=== PATIENT | female | born 1950 | race Two or more races ===

== ENCOUNTER 2016-12-21 08:04 | Day surgery (SDC) | payer OTHER ==
[~2016-12-21] VITALS: Ht 160 cm; Wt 96.9 kg
[2016-12-21] VITALS (8 sets, daily range): BP systolic 103–181; BP diastolic 50–74; PULSE 64–80; RESP 16–25; Ht 160 cm; Wt 96.9 kg
[2016-12-21] MEDS ORDERED: CEFAZOLIN SODIUM 2GM/D5W 50 X1 IVPB ONE (10:00)
[2016-12-21] MEDS ORDERED: SOD CHLORIDE 0.9% 1,000 ML IV SCH (10:00)
[2016-12-21] MEDS ORDERED: METO-407 PO (11:48)
[2016-12-21] MEDS ORDERED: LISI40TA9 PO (11:48)
[2016-12-21] MEDS ORDERED: HYDR-3672 PO (11:48)
[2016-12-21] MEDS ORDERED: FURO40TA4 PO (11:48)
[2016-12-21] MEDS ORDERED: SIMV-39 PO (11:48)
[2016-12-21] MEDS ORDERED: LANTUS SOLOSTAR (11:48)
[2016-12-21] MEDS ORDERED: NOVOLOG (11:48)
[2016-12-21] MEDS ORDERED: GABA300C PO (11:48)
[2016-12-21] MEDS ORDERED: HYDROCODONE/APAP (7.5/325) TAB PO PRN (12:00)
[2016-12-21] MEDS ORDERED: KETOROLAC 30 MG INJ ONE (14:38)
[2016-12-21] MEDS ORDERED: PROPOFOL 20 ML ONE (14:41)
[2016-12-21] MEDS ORDERED: LIDOCAINE 2% (SDV) 5 ML INJ ONE (14:41)
[2016-12-21] MEDS ORDERED: FENTAnyl 50 MCG/ML VIAL ONE (14:41)
[2016-12-21] MEDS ORDERED: PHENYLephrine (100 MCG/ML) 5ML SYG ONE ×2 (14:53→15:22)
[2016-12-21] MEDS ORDERED: CEFAZOLIN 1 GM INJ ONE (14:55)
[2016-12-21] MEDS ORDERED: DEXAMETHASONE 4 MG/ML 1 ML INJ ONE (15:01)
[2016-12-21] MEDS ORDERED: METOCLOPRAMIDE 10 MG INJ ONE (15:01)
[2016-12-21] MEDS ORDERED: ONDANSETRON 4 MG INJ ONE (15:01)
[2016-12-21] MEDS ORDERED: HYDROmorphONE (0.2 MG/ML) 10ML SYG IV PRN ×2 (16:00)
[2016-12-21] MEDS ORDERED: ONDANSETRON 4 MG INJ IV PRN (16:00)
[2016-12-21] MEDS ORDERED: MEPERIDINE 25 MG INJ IV PRN (16:00)
[2016-12-21] MEDS ORDERED: DIPHENHYDRAMINE 50 MG INJ IV PRN (16:00)
--- NOTE | 2016-12-21 20:16 | OPR ---
DATE OF OPERATION: 12/21/2016 PREOPERATIVE DIAGNOSIS: Bilateral breast lesions. POSTOPERATIVE DIAGNOSIS: Bilateral breast lesions. OPERATION PERFORMED: Bilateral needle-directed excisional biopsies. ANESTHESIA: General. ANESTHESIOLOGIST: Dr. Damico SURGEON: Dr. Aldrich ETIQUETTE COACH: None. INDICATIONS FOR PROCEDURE: The patient is a 66-year-old female who underwent surveillance mammograp hy. She was found to have suspicious lesions in both breasts. They were biopsied. 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 On the left side, findings were consistent wi th atypical hyperplasia. The radiologist's recommendation was for full excision of both lesions. T he patient consented and was scheduled for surgery. DESCRIPTION OF PROCEDURE: On the day of surgery, the patient presented to [facility] where she underwent localization of the lesions performed by attending radiologi st, Dr. Radha Kilgore. Subsequently, she was brought to the operating theater where she was place d under general endotracheal tube anesthesia. The breasts were prepped and draped in usual sterile fashion bilaterally. Attention was first directed to the left side. The localization wire was at a pproximately the 4 o'clock location. A curvilinear incision was made in this area. Subcutaneous ti ssue was dissected with cautery. The skin edges were then elevated with skin hooks and wide circumf erential dissection of the tissue associated with the wire took place, taking great care to ensure a dequate margin. The specimen was elevated, transected, oriented, and sent for radiographic confirma tion of capture. Capture was confirmed. The specimen was then sent for permanent pathologic analys is. The wound was irrigated. Minimal bleeding was controlled with cautery. The skin was reapproxi mated with 4-0 Vicryl suture in subcuticular fashion and Dermabond was applied. Attention was then directed to the right side. The localization wire was at approximately the at ap proximately the 6 o'clock location. A curvilinear incision was made. Subcutaneous tissue was disse cted with cautery. The skin edges were elevated with skin hooks. Wide circumferential dissection o f the tissue associated with the wire then took place. Specimen was elevated, transected, oriented, and sent for radiographic confirmation of capture. Capture was confirmed. It was then sent for pe rmanent pathologic analysis. The wound was irrigated. Minimal bleeding was controlled with cautery . The skin was reapproximated with 4-0 Vicryl suture in subcuticular fashion and Dermabond was appl ied. The patient tolerated the procedures well. The total blood loss was 20 mL. There were no com plications, and the patient was transported in stable condition to the recovery room where circumfer ential compression dressing was applied. Dictated By: JUAN BOYD/DAVID Conf#: [id number] DID#: [id number]
== END 2016-12-21 17:40 | disposition home or self-care (01) ==
LOC: SDS 08:04
PROVIDERS: ATTEND Surgery Surgical Oncology
DX: N60.22 Fibroadenosis of left breast (principal); N60.21 Fibroadenosis of right breast; N60.92 Unspecified benign mammary dysplasia of left breast; N60.91 Unspecified benign mammary dysplasia of right breast; E11.9 Type 2 diabetes mellitus without complications; I10 Essential (primary) hypertension; I73.9 Peripheral vascular disease, unspecified; J45.909 Unspecified asthma, uncomplicated
CPT/HCPCS: 19120; 82962; 88307; J0690; J1100; J1885; J2175; J2370; J2405; J2765; J3010